=== PATIENT | male | born 1935 | race Caucasian/White ===

== ENCOUNTER 2024-10-11 14:11 | Emergency (ER) | payer MEDICARE, OTHER, SELFPAY ==
[2024-10-11 14:12] VITALS: BP 172/72
--- NOTE | 2024-10-11 15:57 | ED.GENMED ---
History of Present Illness
General
Chief Complaint: Nose Bleed
Source: patient
Exam Limitations: none
Time Seen by Provider: 10/11/24 15:26
Nursing documentation reviewed up to this point in time: agreed with
History of Present Illness
History of Present Illness:
88 y/o M with h/o afib on xarelto
woke up and started having R sided nosebleed off and on but it has not stopped since
no significant clots
no lightheadedness, headache, nasal pain, nausea, vomiting
has had a nosebleed a few weeks ago that resolved after 2hours
Past History
Past History
ED Past Medical History: Arrthythmia (afib), HTN and Hypercholesterolemia
ED Past Surgical History: Other (hernia)
Social History
Tobacco: Former smoker
Personal:
Review of Systems
Review of Systems
Allergies reviewed?: Yes
All Other Systems: Not applicable
Phy Exam
Physical Exam
Physical Exam:
GENERAL: Alert , in no apparent distress
ENT: R sided anterior nosebleed
no significant bleeding but a clot in his nare
CARDIAC: Regular rate and rhythm, no edema
LUNGS: Clear breath sounds bilaterally, no acute respiratory distress, no wheezes/rales/rhonchi, occ cough
NEUROLOGICAL: Alert and oriented, no focal neuro deficits
SKIN: Warm and dry, skin intact.
PSYCH: Normal and appropriate interaction.
Course
Orders/Labs/Results
Orders:
Orders
10/11/24 15:44
Tranexamic Acid 250 mg TOPICAL NOW STA
Vital Signs
Initial and Last Documented VS:
Initial Vital Signs
Temp Pulse Resp BP Pulse Ox
98.1 F 65 16 172/72 98
10/11/24 14:12 10/11/24 14:12 10/11/24 14:12 10/11/24 14:12 10/11/24 14:12
Last Documented Vital Signs
Temp Pulse Resp BP Pulse Ox
98.1 F 65 16 172/72 98
10/11/24 14:12 10/11/24 14:12 10/11/24 14:12 10/11/24 14:12 10/11/24 14:12
Procedures
Nosebleed
Drug treatment: Lidocaine and Tranexamic Acid
Treatment: local pressure applied and Silver nitrate cautery
Post treatment bleeding: none- good control
ED Attending Note
-
Portions of this chart may have been created with voice recognition software.� Occasional wrong word or��sound alike� substitutions may have occurred due to the inherent limitations of voice recognition software.
Discharge Plan
Departure
Discharge Problem:
Epistaxis
Instructions: Nosebleeds (DC)
Prescriptions:
No Action
atorvastatin 20 MG tablet
20 mg PO QPM
lisinopril 20 MG tablet
20 mg PO DAILY
metoprolol succinate 100 MG tablet extended release 24 hr
100 mg PO BID
torsemide 10 MG tablet
10 mg PO DAILY
rivaroxaban [Xarelto] 20 MG tablet
20 mg PO QPM
Referrals:
Gracie Rodriguez MD [Family Provider] -
Fabricio Box MD [Active] - Follow up in 2-3 days (ENT)
Activity Restrictions/Additional Instructions:
TRY TO AVOID BLOWING/PICKING/TOUCHING YOUR NOSE FOR A FEW DAYS
MOISTEN THE AIR YOU BREATHE BY APPLYING A LITTLE VASOLINE OUTSIDE YOUR NOSTRILS
USE A HUMIDIFER
FOLLOW UP WITH [facility] AND THROAT DOCTOR THIS WEEK CALL AND SAY YOU WERE IN THE ER
REUTRN FOR REBLEEDING THAT DOESN'T STOP WITH 20 MINUTES PRESSURE
OR ANY CONCERNS
Interventions
Interventions:
*Risk Screen - Suicide Last Done: 10/11/24 16:06
*General Assessment Last Done: 10/11/24 16:06
*Neglect/Abuse Screening Last Done: 10/11/24 16:06
*ED COVID-19 Vaccine History Last Done: 10/11/24 16:06
ED-EENT Assessment Last Done: 10/11/24 16:02
Discharge Date and Time
Print Language: BOLIVIAN
[2024-10-11] MEDS: TRANEXAMIC ACID 250 MG TOPICAL (16:02)
[2024-10-11 16:45] VITALS: BP 151/53
[2024-10-11 17:25] VITALS: BP 166/68
== END 2024-10-11 17:37 | disposition home or self-care (01) ==
LOC: EMR 14:11
PROVIDERS: EMERGENCY PHYSICIAN Student in an Organized Health Care Education/Training Program; FAMILY PHYSICIAN Family Medicine
DX: R04.0 Epistaxis (principal); I48.91 Unspecified atrial fibrillation; E78.00 Pure hypercholesterolemia, unspecified; I10 Essential (primary) hypertension; Z79.01 Long term (current) use of anticoagulants; Z87.891 Personal history of nicotine dependence
CPT/HCPCS: 30901; 99283

== ENCOUNTER 2024-10-28 00:20 | Emergency (ER) | payer MEDICARE, OTHER, SELFPAY ==
[2024-10-28 00:21] VITALS: BP 159/73
--- NOTE | 2024-10-28 01:00 | ED.GENMED ---
History of Present Illness
<COURT Reddy - Last Filed: 10/29/24 17:55>
General
Chief Complaint: Nasal Problem
Source: patient
Exam Limitations: none
Time Seen by Provider: 10/28/24 00:48
History of Present Illness
History of Present Illness:
This is a 88 year old male that comes in with c/o nose bleed. States that this started about 10 pm. States that the computer said to hold his nose which he did and after it didn't stop he felt he better come to the ER. States that he was here about
2 weeks ago with the same think and then saw Dr. Marroquin. States that his nose was cauterized and he was doing good for about 2 weeks. States that he is on Xarelto and he takes his dose at night. Denies any fever, chills, chest pain, SOB, abd pain,
nausea, vomiting, diarrhea, headache, dizziness.
Past History
<COURT Reddy - Last Filed: 10/29/24 17:55>
Past History
ED Past Medical History: Arrthythmia (afib), HTN and Hypercholesterolemia
ED Past Surgical History: Other (hernia X 3)
Social History
Tobacco: Former smoker
Alcohol: Occasional
Drug: None
Personal:
Living: with family
Review of Systems
<COURT Reddy - Last Filed: 10/29/24 17:55>
Review of Systems
All Other Systems: ROS reviewed and negative except as documented in HPI and ROS
Constitutional: Reports no symptoms; Denies fever or chills
EENT: Reports other (Nose bleed)
Respiratory: Reports no symptoms; Denies cough or trouble breathing
Cardiac: Reports no symptoms; Denies chest pain
ABD/GI: Reports no symptoms; Denies abdominal pain, nausea, vomiting or diarrhea
: Reports no symptoms
Musculoskeletal: Reports no symptoms
Skin: Reports no symptoms
Neurological: Reports no symptoms; Denies dizzy or headache
Psychiatric: Reports no symptoms
Phy Exam
<COURT Reddy - Last Filed: 10/29/24 17:55>
General Physical Exam
General Presentation: no apparent distress
General age: appears stated age
General Skin: warm and dry
General Habitus: elderly
General Mental: alert
General Hydration: appears well hydrated
ENT Exam
ENT Exam: other (right sided nasal bleeding. )
Eye Exam
Eye Exam: EOMI
Cardiovascular Exam
Cardiovascular Exam: regular rate/rhythm
Musculoskeletal Exam
Musculoskeletal Exam: full ROM
Skin Exam
Skin Exam: normal color, warm/dry, no rash and no petechia
Course
<COURT Reddy - Last Filed: 10/29/24 17:55>
Orders/Labs/Results
Orders:
Orders
10/28/24 00:51
Tranexamic Acid 1,000 mg .ROUTE .STK-MED ONE
10/28/24 03:03
Cephalexin Monohydrate [Keflex] 250 mg PO NOW STA
Vital Signs
Initial and Last Documented VS:
Initial Vital Signs
Temp Pulse Resp BP Pulse Ox
97.8 F 66 20 159/73 98
10/28/24 00:21 10/28/24 00:21 10/28/24 00:21 10/28/24 00:21 10/28/24 00:21
Last Documented Vital Signs
Temp Pulse Resp BP Pulse Ox
97.8 F 60 16 175/68 97
10/28/24 00:21 10/28/24 05:59 10/28/24 05:59 10/28/24 05:59 10/28/24 05:59
<Rm Alexis DO - Last Filed: 10/28/24 01:59>
Orders/Labs/Results
Orders:
Orders
10/28/24 00:51
Tranexamic Acid 1,000 mg .ROUTE .STK-MED ONE
10/28/24 03:03
Cephalexin Monohydrate [Keflex] 250 mg PO NOW STA
Vital Signs
Initial and Last Documented VS:
Initial Vital Signs
Temp Pulse Resp BP Pulse Ox
97.8 F 66 20 159/73 98
10/28/24 00:21 10/28/24 00:21 10/28/24 00:21 10/28/24 00:21 10/28/24 00:21
Last Documented Vital Signs
Temp Pulse Resp BP Pulse Ox
97.8 F 60 16 175/68 97
10/28/24 00:21 10/28/24 05:59 10/28/24 05:59 10/28/24 05:59 10/28/24 05:59
<COURT Reddy - Last Filed: 10/29/24 17:55>
MDM/Problems Addressed
Differential Diagnosis Includes:
Nose bleed
MDM/Problems Addressed:
This is a 88 year old male that comes in with c/o nose bleed. States that this started around 10pm tonight.
will have patient blow his nose and remove the clot on the right nares. TXA put on a cotton ball and will recheck.
Patient has Surgifoam place and a clip to see if this would stop bleeding. Dr. Alexis into see patient. Bleeding seemed to have stopped but patient was concerned that it would start again and would rather have a tampon placed. Dr Alexis cauterized
the nasal septum and patient has no further bleeding. Will discharge home.
Patient went to sit up to leave and his nose started to bleed again. tampon place and filled with air to apply pressure. Will watch again.
Rocket removed and reinserted with Epi and lido on it by Dr. Alexis. Will recheck.
Chronic conditions affecting care:
On Xarelto for atrial fib
Acute Exacerbation and/or Progression of Chronic Illness:
Xarelto for atrial fib
<COURT Reddy - Last Filed: 10/29/24 17:55>
*Critical Care Note
Total Time (30-74mins, 75-104mins- exclusive of procedures): Not Applicable
ED Attending Note
<COURT Reddy - Last Filed: 10/29/24 17:55>
-
Portions of this chart may have been created with voice recognition software.� Occasional wrong word or��sound alike� substitutions may have occurred due to the inherent limitations of voice recognition software.
<Rm Alexis, DO - Last Filed: 10/28/24 01:59>
ED Attending Note
Patient seen and examined by attending physician: Yes
I performed the substantive portion of visit, reviewed & personally made and approve the management plan that is documented in note by myself or ADI.: Yes
ED Attending Note:
I have seen and evaluated the patient with a [id number] encounter. I have spoken to the advance practicer provider and involved in the medical history, the physical exam, medical decision making.
Evaluation and management service: agree unless noted differently below.
Results interpretation: agree unless noted differently below.
Focused HPI: 88-year-old male presenting for evaluation of nasal bleeding
Physical exam: Clots noted to right nare
Medical Decision Making: The clot was removed and there was excoriation noted to right septum. I did place silver nitrate cautery which resolved bleeding
Discharge Plan
Departure
Patient Disposition: Home (Routine Discharge)
Date of Disposition: 10/28/24
Time of Disposition: 02:22
Patient with high blood pressure during this ER visit?: Yes
Condition: Good
Covid-19: Not Applicable
Discharge Problem:
Epistaxis
Instructions: Nosebleeds (DC), BLOOD PRESSURE
Prescriptions:
New
cephalexin 250 mg capsule
250 mg PO BID Qty: 10 0RF
No Action
atorvastatin 20 MG tablet
20 mg PO QPM
lisinopril 20 MG tablet
20 mg PO DAILY
metoprolol succinate 100 MG tablet extended release 24 hr
100 mg PO BID
torsemide 10 MG tablet
10 mg PO DAILY
rivaroxaban [Xarelto] 20 MG tablet
20 mg PO QPM
Referrals:
Bertin Marroquin MD [Active] - Follow up in 2-3 days
Gracie Rodriguez MD [Family Provider] -
Activity Restrictions/Additional Instructions:
As discussed, you have had the right nares cauterized and also packed. Please leave this tampon in place until you see Dr. Marroquin. Please call his office tomorrow and make an appointment for further evaluation. Make him aware that you have the
right nares packed. You have also been started on an antibitic to prevent any infection. You have been given your first dose here and a prescription has been sent to your Pharmacy. IF YOU HAVE ANY OTHER CONCERNS PLEASE RETURN TO THE EMERGENCY ROOM.
Interventions
Interventions:
*Risk Screen - Suicide Last Done: 10/28/24 00:21
*General Assessment Last Done: 10/28/24 00:21
*Neglect/Abuse Screening Last Done: 10/28/24 00:21
ED- Fall Risk Assessment Last Done: 10/28/24 00:21
*ED COVID-19 Vaccine History Last Done: 10/28/24 00:21
*Nursing Disposition Last Done: 10/28/24 05:59
ED-EENT Assessment Last Done: 10/28/24 00:54
Discharge Date and Time
Discharge Date/Time: 10/28/24 05:30
Print Language: NEPALI
[2024-10-28] MEDS: KEFLEX 250 MG PO (03:15)
[2024-10-28 05:59] VITALS: BP 175/68
== END 2024-10-28 05:30 | disposition home or self-care (01) ==
LOC: EMR 00:20
PROVIDERS: EMERGENCY PHYSICIAN Student in an Organized Health Care Education/Training Program; FAMILY PHYSICIAN Family Medicine
DX: R04.0 Epistaxis (principal); I48.91 Unspecified atrial fibrillation; Z79.01 Long term (current) use of anticoagulants; E78.00 Pure hypercholesterolemia, unspecified; I10 Essential (primary) hypertension; Z87.891 Personal history of nicotine dependence
CPT/HCPCS: 30901; 99282

== ENCOUNTER → 2024-11-18 07:29 | Outpatient (REF) | payer MEDICARE, OTHER, SELFPAY | LOC: RAD 07:29 | PROVIDERS: ATTENDING PHYSICIAN Family Medicine | DX: I73.9 Peripheral vascular disease, unspecified (principal) | CPT/HCPCS: 93922; 93925; 93978 ==

== ENCOUNTER → 2025-10-10 10:04 | Outpatient (REF) | payer MEDICARE, OTHER, SELFPAY | LOC: HWRCS 10:04 | PROVIDERS: ATTENDING PHYSICIAN Internal Medicine Cardiovascular Disease; FAMILY PHYSICIAN Family Medicine | DX: I35.1 Nonrheumatic aortic (valve) insufficiency (principal); I48.19 Other persistent atrial fibrillation | CPT/HCPCS: 93306 ==